=== PATIENT | male | born 1980 | race Caucasian/White ===

== ENCOUNTER 2022-10-30 14:05 | Outpatient (CLI) | payer OTHER ==
--- NOTE | 2022-10-30 17:18 | MRI Report ---
PROCEDURE: CERVICAL SPINE WO INDICATIONS: CERVICAL RADICULOPATHY TECHNIQUE: Noncontrast sagittal T1 spin echo and T2 fast spin echo, sagittal STIR, foraminal oblique sagittal T2 fast spin echo, and axial gradient echo or T2 fast spin echo through the cervical spine. COMPARISON: None. FINDINGS: Image quality: Good Alignment: Straightening of the normal cervical lordosis. No significant spondylolisthesis. Marrow: No acute fracture. Multilevel disc desiccation. Cord: No myelopathic cord signal. Soft tissues: No paravertebral mass or hematoma. Specific levels: C2-C3: No stenosis. C3-C4: Small posterior disc protrusion. This is in close proximity to ventral cord. Mild thecal sac n arrowing. No significant neural foraminal narrowing. C4-C5: Small posterior disc bulge and mild to moderate thecal sac narrowing. Facet arthropathy. Mild bilateral neural foraminal narrowing. C5-C6: Posterior disc bulge. Mild to moderate thecal sac narrowing. Facet and uncovertebral arthropat hy. Mild right neural foraminal narrowing. C6-C7: Posterior disc bulge, slightly asymmetric toward the right. Moderate thecal sac narrowing. Mil d right neural foraminal narrowing. C7-T1: Small posterior disc bulge. Mild central narrowing. IMPRESSION: Mild and [id number]-xy-ezvhrcah spondylotic changes as above, mostly characterized by disc disease. There i s straightening of normal cervical lordosis. Reviewed by: Edilberto Jurado MD on 10/30/2022 5:16 PM PDT Approved by: Edilberto Jurado MD on 10/30/2022 5:16 PM PDT Station ID: [id number]
== END 2022-10-30 14:06 | disposition home or self-care (01) ==
LOC: DI 14:05
PROVIDERS: ATTEND Internal Medicine
DX: M47.22 Other spondylosis with radiculopathy, cervical region (principal)

== ENCOUNTER 2023-04-06 06:47 | Outpatient (CLI) | payer OTHER ==
--- NOTE | 2023-04-08 09:58 | MRI Report ---
PROCEDURE: ANKLE WO - RT INDICATIONS: R ACHILLES TENDON PAIN TECHNIQUE: Noncontrast sagittal T1 spin echo and T2 fast spin echo with fat saturation, axial proton density fas t spin echo and T2 fast spin echo with fat saturation, coronal T1 spin echo and T2 fast spin echo wit h fat saturation through the ankle/hindfoot. COMPARISON: None. FINDINGS: Image quality: Excellent. Bones and joints: Small plantar and dorsal calcaneal enthesophytes are seen. There is no fracture or dislocation. No hindfoot coalitions. No osteochondral injuries of the talar dome. Small amount of ti biotalar joint effusion is seen, no gross loose bodies. Medial structures: The posterior tibialis tendon is mildly thickened at the level of distal talus an d talonavicular joint with small amount of fluid distending tendon sheath. The flexor digitorum longu s, and flexor hallucis longus tendons are intact. The posterior tibial neurovascular bundle appears normal within the tarsal tunnel, without extrinsic mass effect. The deltoid ligament and spring liga ment are intact. Lateral structures: The anterior talofibular ligament is thickened. The calcaneofibular, and posteri or talofibular ligaments appear intact. More superiorly, the anterior and posterior tibiofibular lig aments appear normal, as is the intermalleolar ligament. The tibiofibular syndesmosis is normal in w idth at 2 mm or less. The peroneus longus and brevis tendons demonstrate normal location and morphol ogy. Adjacent bony peroneal tubercle and retrotrochlear prominence are normal in size. The sinus ta rsi demonstrates normal fatty signal, without edema, fibrosis, or cyst formation. Visualized sinus t arsi components (cervical ligament, interosseous talocalcaneal ligament, roots of the inferior extens or retinaculum) appear normal. Anterior structures: The tibialis anterior, extensor hallucis longus, and extensor digitorum longus tendons appear intact. Posterior and plantar structures: Distal Achilles tendinosis at its posterior calcaneal insertion is seen. No Achilles tendon rupture. Medial and lateral bands of the plantar fascia are thickened at the ir insertions on plantar calcaneus. No abductor digiti quinti muscle atrophy to suggest Rodriguez neuro fawad. IMPRESSION: 1. Distal Achilles tendinosis at its posterior calcaneal insertion. No Achilles tendon rupture. 2. Mildly thickened plantar fascia suggestive of low-grade plantar fasciitis. 3. No marrow edema. No fracture or dislocation. No osteochondral injuries of talar dome. Well-defined plantar and dorsal calcaneal enthesophytes. 4. Low-grade tenosynovitis involving posterior tibialis tendon at the level of distal talus and karon avicular joint. 5. Low-grade ATFL sprain. Reviewed by: Leobardo Fishman MD on 04/08/2023 9:56 AM PST Approved by: Leobardo Fishman MD on 04/08/2023 9:56 AM PST Station ID: [id number]
== END 2023-04-06 06:48 | disposition home or self-care (01) ==
LOC: DI 06:47
PROVIDERS: ATTEND Podiatrist
DX: M67.971 Unspecified disorder of synovium and tendon, right ankle and foot (principal); M77.31 Calcaneal spur, right foot; S93.491A Sprain of other ligament of right ankle, initial encounter

== ENCOUNTER 2023-08-05 09:15 | Outpatient (CLI) | payer OTHER ==
--- NOTE | 2023-08-06 10:54 | MRI Report ---
PROCEDURE: Shoulder RT WO INDICATIONS: SHOULDER ARTHRITIS TECHNIQUE: Noncontrast oblique coronal T2 fast spin echo with fat saturation, oblique sagittal T1 spin echo and T2 fast spin echo with fat saturation, axial T1 spin echo and T2 fast spin echo with fat saturation t hrough the shoulder. COMPARISON: None. FINDINGS: Image quality: Excellent. Rotator cuff: There is grminblh-[id number]-[id number] supraspinatus, infraspinatus and subscapularis tendinosis. There is low-grade partial-thickness tear of the supraspinatus tendon along the bursal surface. No te ndon rupturing. No rotator cuff muscle atrophy on sagittal images. Bones and bursae: No bone marrow contusions or fractures. There is moderate acromioclavicular and gl enohumeral joint degeneration. There is edema in the distal clavicle with cystic change. Suspect pos tsurgical change around the acromioclavicular joint. The acromion demonstrates conventional anatomy, without an os acromiale. No pathologic subacromial/subdeltoid bursal fluid is present. Capsule and soft tissues: The labrum and glenohumeral ligaments appear intact. The long head of the biceps tendon demonstrates normal location and morphology. The rotator interval appears normal, wit hout fibrosis. The coracohumeral ligament is normal in thickness. IMPRESSION: 1. Uqdiyvyy-sy-abclnc rotator cuff tendinosis. No high-grade tendon tear. No rotator cuff muscle atro phy. 2. Moderate acromioclavicular and glenohumeral arthrosis. 3. ? Postsurgical changes at the acromioclavicular joint. There is bone edema in the distal clavicle. Reviewed by: Leonila Parsons MD on 08/06/2023 10:53 AM PDT Approved by: Leonila Parsons MD on 08/06/2023 10:53 AM PDT Station ID: [id number]
== END 2023-08-05 09:16 | disposition home or self-care (01) ==
LOC: DI 09:15
PROVIDERS: ATTEND Orthopaedic Surgery
DX: M19.011 Primary osteoarthritis, right shoulder (principal); M75.111 Incomplete rotator cuff tear or rupture of right shoulder, not specified as traumatic

== ENCOUNTER 2023-09-23 15:19 | Outpatient (CLI) | payer OTHER ==
[2023-09-23] MEDS ORDERED: GADOTERATE MEGLUMINE 5 MMOL/10 ML VIAL ONE (15:45)
[2023-09-23] MEDS ORDERED: GADOTERATE MEGLUMINE 10 MMOL/20 ML VIAL ONE (15:45)
--- NOTE | 2023-09-23 17:58 | MRI Report ---
PROCEDURE: Brain W/WO INDICATIONS: MEMORY LAPSES, WORD SUBSTITUTION CONTRAST: clariscan 35.4ml TECHNIQUE: Noncontrast axial T1 spin echo, axial T2 fast spin echo, sagittal and axial FLAIR, coronal T2 fast sp in echo, axial gradient echo, axial diffusion and ADC through the brain. After the administration of contrast, axial and coronal T1 spin echo with fat saturation through the brain. COMPARISON: None. FINDINGS: Image quality: Excellent. CSF spaces: Basal cisterns are patent. No extra-axial fluid collections. Ventricles are normal in size and shape. Brain: No midline shift. No intracranial bleeds or masses. No abnormal intracranial enhancement. There is cerebral volume loss for age. There is periventricular white matter chronic small vessel is chemic change. The brainstem appears normal. Diffusion-weighted images demonstrate no acute ischemi c insults. No chronic ischemic insults. Normal intravascular flow voids are present. Skull and face: Calvarial marrow is normal in signal. Orbits appear normal. Sinuses: Sinuses and mastoids appear clear. IMPRESSION: No imaging explanation is found for the patient's presenting symptoms. No masses or abnormal enhancement can be seen. No findings of acute or subacute infarction are seen. No prior territorial infarction can be seen. Reviewed by: Aiden Live MD on 09/23/2023 4:56 PM [facility] Approved by: Aiden Live MD on 09/23/2023 4:56 PM [facility] Station ID: [id number]
[2023-09-23] MEDS: GADOTERATE MEGLUMINE 10 MMOL/20 ML VIAL IVP ONE (18:24)
[2023-09-23] MEDS: GADOTERATE MEGLUMINE 5 MMOL/10 ML VIAL IVP ONE (18:25)
== END 2023-09-23 15:20 | disposition home or self-care (01) ==
LOC: DI 15:19
PROVIDERS: ATTEND Internal Medicine
DX: G93.9 Disorder of brain, unspecified (principal); R41.3 Other amnesia
CPT/HCPCS: 70553; A9575

== ENCOUNTER 2023-12-08 08:14 | Emergency (ER) | payer OTHER ==
[2023-12-08 08:28] VITALS: BP 145/82; O2SAT 100
--- NOTE | 2023-12-08 08:30 | ED Physician Documentation ---
PD HPI UPPER EXT INJURY - Stated complaint Stated Complaint: ARM SWOLLEN, STING - Chief complaint Chief Complaint: Ext Problem - History obtained from History obtained from: Patient - History of Present Illness Location: Right, Forearm, Wrist Type of injury: Other (sting by bee/hornet with stinger 2 days ago. Had some swelling initially until last evening into this morning, when had marked increase in redness and swelling. No fevers.) Timing - onset: How many days ago (2) Timing - duration: Days (2) Timing - details: Abrupt onset, Still present Associated symptoms: Swelling, Discolored (redness and warmth around sites of stings, increased a lot today.). No: Weakness, Numbness Similar symptoms before: Has not had sx before Review of Systems Skin: denies: Rash Neurologic: denies: Generalized weakness, Near syncope, Altered mental status PD PAST MEDICAL HISTORY - Past Medical History Past Medical History: Yes HEENT: Chronic hearing loss - Past Surgical History Past Surgical History: Yes General: Other Ortho: Spine surgery HEENT: Other - Present Medications Home Medications: Ambulatory Orders Medication Instructions Recorded Confirmed Cetirizine [ZyrTEC] 10 mg PO BID #15 tablet 12/08/23 Dulaglutide [Trulicity] See Rx Instructions .ROUTE .COMPLEX 12/08/23 12/08/23 Lidocaine 4 % TP DAILY PRN #10 patch 12/08/23 cephALEXin [Keflex] 500 mg PO TID 5 Days #15 cap 12/08/23 dexAMETHasone [Decadron] 4 mg PO DAILY #5 tablet 12/08/23 lisinopriL [Lisinopril] 10 mg PO DAILY 12/08/23 12/08/23 metFORMIN [Glucophage] 500 mg PO BIDWM 12/08/23 12/08/23 - Allergies Allergies/Adverse Reactions: Allergies Allergy/AdvReac Type Severity Reaction Status Date / Time No Known Drug Allergies Allergy Verified 12/08/23 08:26 - Social History Does the pt smoke?: No Smoking Status: Never smoker Does the pt have substance abuse?: No - Immunizations Immunizations are current?: Yes - POLST Patient has POLST: No PD ED PE NORMAL - Vitals Vital signs reviewed: Yes - General General: Alert and oriented X 3, No acute distress, Well developed/nourished - Cardiac Cardiac: RRR, No murmur - Respiratory Respiratory: No respiratory distress, Clear bilaterally - Derm Derm: Normal color, Warm and dry - Extremities Extremities: Other (right lateral prox forearm and dorsal wrist with sepearate local red/swelling spots, with redness converging in forearm area. Nor redness proximal to the elbow. ) - Neuro Neuro: No motor deficit, No sensory deficit Results - Vitals Vitals: Vital Signs - 24 hr 12/08/23 08:20 Temperature 35.9 C L Heart Rate 76 Respiratory 20 Rate Blood Pressure 145/82 H O2 Saturation 100 Oxygen O2 Source Room air PD Medical Decision Making - ED course Complexity details: considered differential (warmth, swelling and redness that has increased after 1 1/2 days from sting time. Consider persistintg venom effect vs contribution from cellulitis as well. No disjointed sympotms so does not need epipen.), d/w patient Departure - Departure Disposition: 01 Home, Self Care Clinical Impression: Bee sting reaction, Cellulitis Condition: Stable Record reviewed to determine appropriate education?: Yes Instructions: ED Sting Bite Insect Infec Follow-Up: MICAELA CARTER MD [Primary Care Provider] - Prescriptions: dexAMETHasone [Decadron] 4 mg PO DAILY #5 tablet cephALEXin [Keflex] 500 mg PO TID 5 Days #15 cap Lidocaine 4 % TP DAILY PRN #10 patch PRN Reason: Itching Cetirizine [ZyrTEC] 10 mg PO BID #15 tablet Comments: The venom effect from a bee sting can last for a few days. It will often increase in peak at a day or so. As the symptoms keep expanding into 2 or 3 days, it can be hard to tell if it is still just a primary reaction to the venom aware that there could be a sec ondary infection developing as well. At this time in the course of it with increasing symptoms, would treat it as both with a steroid and antihistamines but also add an antibiotic and topical symptom improvement with lidocaine or such. I sent these prescriptions to the [facility] pharmacy. I would anticipate improvement primarily with the steroids through the day and into late afternoon but it will be 2 or 3 days tapering down to be resolved completely. Recheck if not improving well over the next day or so. Given that your symptoms are local/contiguous to the stings, even though they are still expanding or worsening, it still would be considered a local reaction and I would not necessarily advocate having to carry EpiPen with you outdoors. Forms: PCP List Discharge Date/Time: 12/08/23 09:06
[2023-12-08] MEDS: LIDOCAINE PATCH 5% TOP STA (08:59)
[2023-12-08] MEDS: cephALEXin 250 MG CAPSULE PO STA (08:59)
[2023-12-08] MEDS: dexAMETHasone 4 MG TABLET PO STA (09:00)
[2023-12-08] MEDS: CETIRIZINE 10 MG TABLET PO STA (09:00)
== END 2023-12-08 09:06 | disposition home or self-care (01) ==
LOC: ED 08:14
DX: T63.441A Toxic effect of venom of bees, accidental (unintentional), initial encounter (principal); L03.113 Cellulitis of right upper limb; Z79.899 Other long term (current) drug therapy; Z79.85 Long-term (current) use of injectable non-insulin antidiabetic drugs; Z79.84 Long term (current) use of oral hypoglycemic drugs
CPT/HCPCS: 99283; A9270; J8540